=== PATIENT | female | born 1960 | race Caucasian/White ===

== ENCOUNTER 2018-06-02 14:22 | Outpatient (CLI) | payer OTHER ==
[~2018-06-02 14:22] MED LIST: Iopamidol 370 76% 100 ML VIAL ONE
--- NOTE | 2018-06-02 16:20 | CT ---
EXAM: FACIAL BONE CT WITH CONTRAST: 06/02/18 HISTORY: Popping in her jaw starting two months ago. Patient noticed a mass and cyst on the right side of the face, in front of the ear. COMPARISON: None. TECHNIQUE: Face CT is performed with contrast. Reformatted images are submitted for interpretation. FINDINGS: The visualized brain parenchyma is unremarkable. Bilateral ocular lenses are appropriately located. B oth globes are intact. Retrobulbar fat is preserved. Symmetric attenuation of the optic nerves and op tic rectus muscles. The calvarium is visualized. The calvarium is intact. Adequate aeration of the sinuses and mastoid ai r cells. Zygomatic arches are symmetric and intact. The visualized maxilla and mandible are intact. Upper cervical spine is also intact. Vertebral body height is maintained. There is no fracture. Incom pletely evaluated cervical fusion hardware. Aerodigestive tract is patent. No mucosal abnormality. No obvious mass in the oral cavity. Midline fa tty raphae of the tongue is preserved. There is symmetric attenuation of the parotid and submandibular glands. Symmetric attenuation of the visualized sternocleidomastoid muscles. No evidence of lymphadenopathy by size criteria. Grossly, the great vessels in the neck are patent. There is medialization of the left internal caroti d artery with mass effect upon the posterior left oropharynx. At the level of palpable marker, there is no evidence of a solid or cystic mass. No lymphadenopathy. There are significant disc osteophytes in the cervical spine with indentation of the cervical cord, g reatest at the C5-C6 level. IMPRESSION: No CT evidence of a solid or cystic mass in the right face, in the region of interest. POS: YADI
== END 2018-06-02 14:23 | disposition home or self-care (01) ==
LOC: SCSCT 14:22
PROVIDERS: ATTEND Specialist
DX: S03.00XA Dislocation of jaw, unspecified side, initial encounter (principal)
CPT/HCPCS: 70487; 82565